=== PATIENT | female | born 1980 | race Caucasian/White ===

== ENCOUNTER 2020-03-06 20:22 | Emergency (ER) | payer MEDICAID ==
[~2020-03-06] VITALS: Ht 160 cm; Wt 71.4 kg
[2020-03-06 20:32] VITALS: Ht 160 cm; Wt 71.4 kg
[2020-03-06 22:04] LABS: UDS - AMPHET POSITIVE QUAL (NEGATIVE); UDS - BARB NEGATIVE QUAL (NEGATIVE); UDS - BENZO NEGATIVE QUAL (NEGATIVE); UDS - COCAINE NEGATIVE QUAL (NEGATIVE); UDS - OPIATE NEGATIVE QUAL (NEGATIVE); UDS - PCP NEGATIVE QUAL (NEGATIVE); UDS - THC NEGATIVE QUAL (NEGATIVE)
[2020-03-06 22:09] LABS: BILIRUBIN NEGATIVE (NEGATIVE); KETONE NEGATIVE (NEGATIVE); NITRITE NEGATIVE (NEGATIVE); UROBILINOGEN NORMAL mg/dL (< 2)
[2020-03-06 22:10] LABS: BACTERIA FEW HPF (NONE SEEN); EPITHELIAL CELLS 0-5 /hpf (0-5)
[2020-03-06] MEDS ORDERED: MACROBID100 MG PO (23:06)
[2020-03-06 23:25] VITALS: BP 164/105
== END 2020-03-06 23:25 | disposition home or self-care (01) ==
LOC: D.ER 20:22
PROVIDERS: Emergency Medicine
DX: R51.9 Headache, unspecified (principal); F15.10 Other stimulant abuse, uncomplicated; N39.0 Urinary tract infection, site not specified

== ENCOUNTER 2020-03-12 13:28 | Emergency (ER) | payer MEDICAID ==
[~2020-03-12] VITALS: Ht 160 cm; Wt 71.4 kg
[~2020-03-12 13:28] MED LIST: MACROBID100 MG PO
[2020-03-12 13:59] VITALS: Ht 160 cm; Wt 71.4 kg
[2020-03-12 14:30] LABS: BASOPHILS 0.5 % (0-2); EOSINOPHILS 1.3 % (0-7); HEMOGLOBIN 13.3 g/dL (12-16); IMMATURE GRANULOCYTES 0.3 % (0-5); MCH 29.6 pg (26.0-34.0); MCHC 33.3 g/dL (31.0-37.0); MCV 88.9 fL (80.0-100.0); MEAN PLATELET VOLUME 8.5 fL (7.4-10.4); MONOCYTES 8.4 % (2-11); NEUTROPHILS 59.5 % (40-80); PLATELET COUNT 372 10x3/uL (130-400); RDW 13.4 % (11.5-14.5); WBC 14.1 10x3/uL (4.8-10.8)
[2020-03-12 14:43] LABS: CALC OSMOLALITY 275 mosm/kg (275-300); CALCIUM 9.1 mg/dL (8.5-10.1); CARBON DIOXIDE 26.1 mmol/L (21.0-32.0); CHLORIDE - SERUM 100 mmol/L (98-107); CREATININE - SERUM 0.8 mg/dL (0.6-1.3); GLUCOSE 114 mg/dL (74-106); POTASSIUM - SERUM 3.5 mmol/L (3.5-5.1); SODIUM 138 mmol/L (136-145); UREA NITROGEN 9 mg/dL (7-18); eGFR NON AFRICAN AMERICAN 85 mL/min (90-120)
[2020-03-12 14:50] LABS: ALBUMIN 3.8 g/dL (3.4-5.0); ALKALINE PHOSPHATASE 117 U/L (30-120); ALT (SGPT) 129 U/L (10-68); BILIRUBIN - TOTAL 0.22 mg/dL (0.2-1.3); PROTEIN - SERUM 7.6 g/dL (6.4-8.2)
[2020-03-12 16:34] LABS: BILIRUBIN NEGATIVE (NEGATIVE); KETONE NEGATIVE (NEGATIVE); NITRITE NEGATIVE (NEGATIVE); UROBILINOGEN NORMAL mg/dL (< 2)
[2020-03-12 16:39] LABS: EPITHELIAL CELLS NSEEN /hpf (0-5); WHITE CELLS - URINE 0-5 HPF (0-4)
[2020-03-12 16:40] LABS: BACTERIA FEW HPF (NONE SEEN)
[2020-03-12 18:49] VITALS: BP 166/110
== END 2020-03-12 18:49 | disposition home or self-care (01) ==
LOC: D.ER 13:28
PROVIDERS: Emergency Medicine
DX: R20.8 Other disturbances of skin sensation (principal); R51.9 Headache, unspecified; M54.2 Cervicalgia; M79.601 Pain in right arm